=== PATIENT | female | born 1945 | race Caucasian/White ===

== ENCOUNTER 2017-01-12 05:25 | Emergency (ER) | payer MEDICARE ==
[~2017-01-12] VITALS: Ht 152.4 cm; Wt 200.0 kg
[~2017-01-12 05:25] MED LIST: ALBU8.5H4 IH; ALPR1TAB2 PO; ALPRAZOLAM1 MG PO; AMIT25TA9 PO; AMT50T PO; BUPR300T51 PO; CHOL200020 PO; CREST10T PO; ESTR1PAT10 TD; FURO-128 PO; MULT-892 PO; POTA40LI2 PO; THYR60TA2 PO
[2017-01-12 05:54] VITALS: BP 86/58; PULSE 76; RESP 22; O2SAT 96
[2017-01-12 06:28] LABS: BASOPHILS % (AUTO) 0.4 % (0-3); EOSINOPHILS % (AUTO) 1.4 % (0-5); MONOCYTES % (AUTO) 9.4 % (4-12); Mean Corpuscular Hemoglobin 31.6 pg (27.0-35.0); NEUTROPHILS % (AUTO) 72.7 % (40-74); Platelet Count 331 bil/L (150-400)
--- NOTE | 2017-01-12 06:31 | ED.REPORT ---
HPI-Trauma Minor / Fall Date of Service January 12, 2017 ED Provider: Abundio Washburn DO 71 year old female with a history of bilateral hip arthroplasty and CVA e presents to the ER via EMS complaining of right hip pain status post mechanical fall while walking up a flight of stairs yesterday. She laid down in her bed immediately after the fall where she found that she is unable to lay on her right side secondary to pain. When she attempted to get out of bed she fell a second time and was unable to get up for several hours, and screamed for help until her daughter heard her and subsequently called EMS. Patient denies any further injuries secondary to the fall. Nursing Notes Stated Complaint: GROUND LEVEL FALL Chief Complaint: General Complaint Nursing Notes Reviewed: Yes Allergies: Coded Allergies: No Known Drug Allergies (Verified Allergy, Unknown, 03/24/14) Scheduled Albuterol-Expunged Drug, Do Not Renew! (Albuterol-Expunged Drug, Do Not Renew!) 8.5 Gm Hfa.aer.ad 2 PUFFS IH QID four times daily and as needed every four hours Alprazolam-Expunged Drug, Do Not Renew! (Alprazolam-Expunged Drug, Do Not Renew! ) 1 Mg Tablet 1 MG PO HS Must have XANAX, not generic Amitriptyline (Amitriptyline) 50 Mg Tab 50 MG PO HS Amitriptyline-Expunged Drug, Do Not Renew! (Amitriptyline-Expunged Drug, Do Not Renew!) 25 Mg Tablet 50 MG PO HS Bupropion ER (Wellbutrin XL) 300 Mg Tab.er.24h 300 MG PO DAILY Cholecalciferol (D3)-Expunged Drug, Do Not Re (Vitamin M-9-Tufmklfv Drug, Do Not Renew!) 2,000 Unit Capsule 4,000 UNIT PO DAILY Estradiol-Expunged Drug, Do Not Renew! (Dfsvmrp-Weu-Ixxhbaoo Drug, Do Not Renew! ) 1 Patch.bwk Patch.tdsw 1 PATCH.BWK TD BIW 1 mg Multivitamin (Daily Value) 1 Each Tablet 1 EACH PO DAILY Rosuvastatin Calcium (Crestor) 10 Mg Tablet 10 MG PO DAILY Thyroid,Pork ([place] Thyroid) 60 Mg Tablet 60 MG PO DAILY Scheduled PRN Alprazolam (Xanax) 1 Mg Tablet 1 MG PO HS PRN PRN For Anxiety Miscellaneous Medications Furosemide (Lasix) 40 Mg Tablet 40 MG PO Potassium Chloride (Potassium Chloride) 40 Meq/15 Ml Liquid 40 MEQ PO General Time Seen by MD: 06:30 Chief Complaint Fall, Other (Right Hip Pain) Hx Obtained From: Patient Arrived By: Ambulance Onset Occurred: Yesterday Caused by: Accidental, Fall on ground Context: Occurred at: Home injury Location: Hip right Quality: Painful Severity: Current: Moderate Severity: Maximum: Moderate Pertinent Negative: Pt denies other symptoms Similar Sx Previous: No Past Medical History Past Medical History hypothyroid, anxiety Reports: Asthma, Stroke Reports: Depression Past Surgical History rhinoplasty reduction Reports: Appendectomy, Cholecystectomy, Tonsillectomy Reports: Hip replacement (bilateral) Smoking History Never Smoker Social History Alcohol Use: Denies alcohol use Drug Use: Denies drug use Other Social History: Good social support Ambulatory Status Independent Review of Systems Musculoskeletal: Reports: Joint pain (Right Hip), Denies: Back pain, Extremity pain, Lumbar pain, Neck pain, Thoracic pain Neurologic: Reports: Lightheaded Complete sys rev & neg: except as marked. Physical Exam Initial Vital Signs Vital Signs (First) Date Time Temp Pulse Resp B/P Pulse Ox O2 Delivery O2 Flow Rate FiO2 01/12/17 05:54 36.9 76 22 86/58 96 Room Air Initial VS: Reviewed Head / Eyes: Atraumatic, Normocephalic Respiratory: Breath sounds normal, Clear to auscultation, No respiratory distress Cardiovascular: Regular rate & rhythm, Heart sounds normal, Intact distal pulses Skin: Warm, Dry, No cyanosis Neurologic: Alert, Oriented, Nonfocal Psychiatric: Mood/affect normal, Behavior normal, Normal thought content General/Constitutional: Awake, Alert, Well developed Appearance / Presentation: Positive: Pale Neck: Atraumatic, Supple, Full range of motion, No swelling, Non-tender, No midline vertebral tend Lower Extremity / Pelvis / MS: No deformity, Neurologic intact, Vascular intact Right Hip: Positive: Tenderness present... Large hematoma and bruising to the right buttock an gluteal area. Interpretation & Diagnostics Lab Results Interpretation Result Diagram: 01/12/17 0550 01/12/17 0550 Test 01/12/17 05:50 White Blood Count 10.4th/mm3 (3.8-10.1) Red Blood Count 4.05mil/mm3 (3.90-5.20) Hemoglobin 12.8g/dL (12.0-15.6) Hematocrit 40.1% (35.0-46.0) Mean Corpuscular Volume 99.0fL (81-100) Mean Corpuscular Hemoglobin 31.6pg (27.0-35.0) Mean Corpuscular Hemoglobin Concent 31.9% (32.0-37.0) Red Cell Distribution Width 13.7% (12.3-15.4) Platelet Count 331bil/L (150-400) Neutrophils (%) (Auto) 72.7% (40-74) Lymphocytes (%) (Auto) 15.8% (14-46) Monocytes (%) (Auto) 9.4% (4-12) Eosinophils (%) (Auto) 1.4% (0-5) Basophils (%) (Auto) 0.4% (0-3) Prothrombin Time 10.6sec (8.1-12.5) Prothromb Time International Ratio 0.99ratio Sodium Level 142mEq/L (134-144) Potassium Level 4.3mEq/L (3.5-5.2) Chloride Level 101mEq/L (97-108) Carbon Dioxide Level 25mmol/L (18-29) Blood Urea Nitrogen 20mg/dL (8-27) Creatinine 1.62mg/dL (0.57-1.00) Estimat Glomerular Filtration Rate 45mL/min (>59) Glucose Level 216mg/dL (60-99) Calcium Level 9.2mg/dL (8.5-10.1) Magnesium Level 2.1mg/dL (1.6-2.6) Total Bilirubin 0.3mg/dL (0.0-1.2) Aspartate Amino Transf (AST/SGOT) 27U/L (0-50) Alanine Aminotransferase (ALT/SGPT) 19U/L (0-32) Alkaline Phosphatase 61U/L (25-165) Troponin T 0.010ug/L (0.0-0.011) Pro-B-Type Natriuretic Peptide 62.50pg/mL (0-301) Total Protein 5.9g/dL (6.4-8.4) Albumin 3.6g/dL (3.4-5.0) Lipase 23U/L (13-60) ECG Interpretation ECG Interpretation: Sinus rhythm, rate 71 Inferior Q waves Time: 06:47 Interpreted by: ED physician X-Ray Interpretation Xray Interpretation: IMPRESSION: Expected positioning of bilateral hip arthroplasties and no definite acute bony injury is seen. Dictated by: Tony Plummer RRA Interpreted: Lindsey Nicholas MD on 01/12/2017 at 8:42 Transcribed by: DARLEEN on 01/12/2017 at 8:44 X-Ray Ordered: Pelvis, Hip right Interpretation / Wet Read by: Interpret - Radiologist Re-Eval/Medical Decision Med Decision/Clinical Course No obvious fracture however she does have a significant gluteal hematoma. After pain management x-rays and basic screening labs were performed, she is ambulatory with a walker which sounds like that is her baseline. Ultimately she is stable to be discharged. Return and follow-up precautions given. Source of Hx: Old records Re-Evaluation/Progress #1: Time of Eval: 08:05 Re-Evaluation/Progress Note: Discussed lab and imaging findings and plan to discharge pending road test. Patient is amenable to the plan. Return precautions given. All other questions addressed. Re-Evaluation/Progress #2: Time of Eval: 08:49 Re-Evaluation/Progress Note: Patient passed road test. Fit for discharge. Counseled Regarding: Diagnosis, Lab results, Need for follow-up, When/why to return to ED Discharge & Departure Impression: Primary Impression: Contusion, hip Disposition: Home Discharge Condition All VS Reviewed: Yes Condition: Stable Patient Instructions: Contusion in Adults (ED) Additional Instructions: Use a walker as needed for ambulation, progress as tolerated. Return to the ER if you develop any new or worsening pain, or any other concerning symptoms. Referrals: Lupe Ahn MD (PCP) Scribe Attestation Portions of this note were transcribed by Roger Christensen. I, Dr. Washburn, personally performed the history, physical exam and medical decision-making; I reviewed and confirmed the accuracy of the information in the transcribed note. Signed by: Ana Tabor, 01/12/2017 and 08:49 copies to: Lupe Ahn MD, Timothy S DO January 12, 2017 06:31 ROGER CHRISTENSEN January 12, 2017 06:40
[2017-01-12] MEDS ORDERED: 0.9% Sodium Chloride 500 ML IV ONE (06:40)
[2017-01-12 06:57] LABS: INR 0.99 ratio
[2017-01-12 06:59] LABS: TROPONIN T 0.01 ug/L (0.0-0.011)
[2017-01-12] MEDS ORDERED: HYDROmorphone 0.5 mg/0.5 mL iSecure Syringe IVPUSH PRN (07:10)
[2017-01-12 07:15] LABS: Magnesium 2.1 mg/dL (1.6-2.6)
[2017-01-12 07:21] VITALS: BP 101/52; PULSE 69; RESP 21; O2SAT 96
--- NOTE | 2017-01-12 08:44 | DRSVH ---
PROCEDURE: X-RAY PELVIS W/LAT HIP (RT) ([id number]) INDICATIONS: fall, pain TECHNIQUE: AP pelvis and lateral view of the right hip acquired. COMPARISON: None. FINDINGS: Bones: Patient is status post bilateral hip arthroplasty, with hardware components in expected posit ions. The hip joint appears congruent. The visualized bony structures appear intact. Degenerative change involving the visualized lower lumbar spine. Soft tissues: Overlying postoperative changes are noted. No suspicious soft tissue densities. Righ t lower quadrant surgical clips. IMPRESSION: Expected positioning of bilateral hip arthroplasties and no definite acute bony injury is seen. Dictated by: Tony Plummer [facility] Interpreted: Lindsey Nicholas MD on 01/12/2017 at 8:42 Transcribed by: DARLEEN on 01/12/2017 at 8:44 Approved by: Lindsey Nicholas MD, PhD on 01/12/2017 at 9:20
[2017-01-12 09:21] VITALS: BP 117/68; PULSE 72; RESP 16; O2SAT 90
== END 2017-01-12 08:34 | disposition home or self-care (01) ==
LOC: SED 05:25
DX: S70.01XA Contusion of right hip, initial encounter (principal); W10.8XXA Fall (on) (from) other stairs and steps, initial encounter; Y92.009 Unspecified place in unspecified non-institutional (private) residence as the place of occurrence of the external cause; Y93.01 Activity, walking, marching and hiking; Y99.8 Other external cause status; F32.9 Major depressive disorder, single episode, unspecified; J45.909 Unspecified asthma, uncomplicated; E03.9 Hypothyroidism, unspecified; F41.9 Anxiety disorder, unspecified; Z96.643 Presence of artificial hip joint, bilateral
CPT/HCPCS: 36415; 73501; 80053; 83690; 83735; 83880; 84484; 85025; 85610; 93005; 96361; 96374; 99285; J1170; J7040

== ENCOUNTER 2017-01-17 11:02 | Emergency (ER) | payer MEDICARE ==
[~2017-01-17] VITALS: Ht 152.4 cm; Wt 95.5 kg
[2017-01-17 11:05] VITALS: BP 146/95; PULSE 85; RESP 16; O2SAT 100
--- NOTE | 2017-01-17 11:13 | ED.REPORT ---
HPI-Hip/Pelvis Prob/Inj Date of Service January 17, 2017 ED Provider: Luis Sanders MD Pt is a 71 year old female with a hx of asthma presenting to the ED complaining of increased swelling and bruising to her right buttock following a fall on . She now reports swelling, tingling, and increased pain. She denies being on blood thinners, but does report taking Aspirin the day after the injury. Pt is usually ambulatory on her own but right now is ambulatory with a walker. Nursing Notes Stated Complaint: CONTUSION Chief Complaint: Extremity Trauma Nursing Notes Reviewed: Yes Allergies: Coded Allergies: No Known Drug Allergies (Verified Allergy, Unknown, 01/17/17) Scheduled Albuterol-Expunged Drug, Do Not Renew! (Albuterol-Expunged Drug, Do Not Renew!) 8.5 Gm Hfa.aer.ad 2 PUFFS IH QID four times daily and as needed every four hours Alprazolam-Expunged Drug, Do Not Renew! (Alprazolam-Expunged Drug, Do Not Renew! ) 1 Mg Tablet 1 MG PO HS Must have XANAX, not generic Amitriptyline (Amitriptyline) 50 Mg Tab 50 MG PO HS Amitriptyline-Expunged Drug, Do Not Renew! (Amitriptyline-Expunged Drug, Do Not Renew!) 25 Mg Tablet 50 MG PO HS Bupropion ER (Wellbutrin XL) 300 Mg Tab.er.24h 300 MG PO DAILY Cholecalciferol (D3)-Expunged Drug, Do Not Re (Vitamin C-9-Vbztchir Drug, Do Not Renew!) 2,000 Unit Capsule 4,000 UNIT PO DAILY Estradiol-Expunged Drug, Do Not Renew! (Mazlmwn-Wjw-Knemgucv Drug, Do Not Renew! ) 1 Patch.bwk Patch.tdsw 1 PATCH.BWK TD BIW 1 mg Multivitamin (Daily Value) 1 Each Tablet 1 EACH PO DAILY Rosuvastatin Calcium (Crestor) 10 Mg Tablet 10 MG PO DAILY Thyroid,Pork ([place] Thyroid) 60 Mg Tablet 60 MG PO DAILY Scheduled PRN Alprazolam (Xanax) 1 Mg Tablet 1 MG PO HS PRN PRN For Anxiety Hydromorphone (Dilaudid) 2 Mg Tablet 2 MG PO Q4H PRN PRN Pain Miscellaneous Medications Furosemide (Lasix) 40 Mg Tablet 40 MG PO Potassium Chloride (Potassium Chloride) 40 Meq/15 Ml Liquid 40 MEQ PO General Time Seen by Provider: 11:28 Chief Complaint Hip injury right Hx Obtained From: Patient Arrived By: Walk-in Onset Occurred: 6 days ago Symptom Duration: Since onset Progression Since Onset: Gradually worsening Caused by: Fall on ground Quality: Painful Severity: Current: Moderate Severity: Maximum: Severe Recent Healthcare: No recent hospitalization, Recent doctor visit Similar Sx Previous: No Past Medical History Past Medical History hypothyroid, anxiety Reports: Asthma, Stroke Reports: Depression Past Surgical History rhinoplasty reduction Reports: Appendectomy, Cholecystectomy, Tonsillectomy Reports: Hip replacement Smoking History Never Smoker Social History Alcohol Use: Denies alcohol use Drug Use: Denies drug use Other Social History: Good social support Ambulatory Status Walker Review of Systems Musculoskeletal: Reports: Joint pain (Right hip/buttock) Skin: Reports Bruising, Reports Swelling Neurologic: Reports: Numbness Complete sys rev & neg: except as marked. Physical Exam Initial Vital Signs Vital Signs (First) Date Time Temp Pulse Resp B/P Pulse Ox O2 Delivery O2 Flow Rate FiO2 01/17/17 11:05 36.0 85 16 146/95 100 Room Air Initial VS: Reviewed General/Constitutional: Well-developed, Well-nourished Head / Eyes: Normocephalic, PERRL ENT: Conjunctiva normal Neck: Supple Respiratory: No respiratory distress Skin: Warm, Dry, No cyanosis Neurologic: Alert, Oriented, Nonfocal Psychiatric: Mood/affect normal, Behavior normal, Normal thought content Lower Extremity / Pelvis / MS: Neurologic intact, Vascular intact, No compartment syndrome Big bruise over right sacrum extending from left of midline to iliac crest, down onto buttock and a bit of bruising tracking down into thigh. Soft. Pulses, sensation and motor intact in the right foot. Back: No midline vertebral tend, No CVA tenderness Pt has a little tenderness of lower lumbar spine. Interpretation & Diagnostics Interpretation & Diagnostics: XRAY PELVIS: IMPRESSION: No fracture. No acute osseous lesion. If there are persistent symptoms or clinical suspicion for pathology, then repeat radiographs or advanced imaging (CT, MRI or bone scan) should be considered for further evaluation. Dictated by: Lindsey Nicholas MD, PhD on 01/17/2017 at 12:19 XRAY LUMBAR SPINE: IMPRESSION: No fracture. No acute osseous lesion. If there are persistent symptoms or continued clinical suspicion for pathology, then MRI should be considered for further evaluation. Dictated by: Lindsey Nicholas MD, PhD on 01/17/2017 at 12:18 Lab Results Interpretation Result Diagram: 01/17/17 1145 Test 01/17/17 11:45 White Blood Count 5.5th/mm3 (3.8-10.1) Red Blood Count 3.25mil/mm3 (3.90-5.20) Hemoglobin 10.3g/dL (12.0-15.6) Hematocrit 32.5% (35.0-46.0) Mean Corpuscular Volume 100.0fL (81-100) Mean Corpuscular Hemoglobin 31.7pg (27.0-35.0) Mean Corpuscular Hemoglobin Concent 31.7% (32.0-37.0) Red Cell Distribution Width 13.7% (12.3-15.4) Platelet Count 328bil/L (150-400) Neutrophils (%) (Auto) 73.5% (40-74) Lymphocytes (%) (Auto) 12.5% (14-46) Monocytes (%) (Auto) 9.5% (4-12) Eosinophils (%) (Auto) 3.1% (0-5) Basophils (%) (Auto) 0.5% (0-3) Hold Blue Top Tube Received (Received) Hold Red Top Tube Received (Received) Hold [place] Top Tube Received (Received) Hold [place] Top Tube Received (Received) Re-Eval/Medical Decision Re-Evaluation/Progress #1: Time of Eval: 12:25 Patient Status: Condition improved Re-Evaluation/Progress Note: Discussed x ray results. Re-Evaluation/Progress #2: Time of Eval: 13:03 Patient Status: Condition improved Re-Evaluation/Progress Note: Discussed lab results and plan for discharge. Pt understands and agrees. Counseled Regarding: Diagnosis, Lab results, Need for follow-up, When/why to return to ED Discharge & Departure Impression: Primary Impression: Contusion of right hip and thigh Disposition: Home Discharge Condition All VS Reviewed: Yes Condition: Improved Additional Instructions: Your emergency room visit today included interview, examination, lab work, and x rays. Your x rays looked good, and did not show any sign of fracture. Blood work did demonstrate a drop in hemoglobin between January 12 and today, but we do not believe that there is any acute bleeding going on at present. Expect that this will track out further with time. May use tylenol as needed for pain. If having severe pain may use oral dilaudid 2mg 1/2 to 1 tablet- this will cause constipation so use stool softeners and laxitives to keep bowels moving. Follow up with primary care in about 5-7 days. Return to ED for feeling faint/ fainting. Referrals: Lupe Ahn MD (PCP) Alinaibe Attestation Portions of this note were transcribed by Flora Kenney. I, Dr. Sanders personally performed the history, physical exam and medical decision-making; I reviewed and confirmed the accuracy of the information in the transcribed note. Signed by : Ana Banegas, 01/17 at 1309. copies to: Lupe Ahn MD, Donald L MD January 17, 2017 11:13 FLORA KENNEY January 17, 2017 11:31 FLORA KENNEY January 17, 2017 11:31
[2017-01-17] MEDS ORDERED: HYDROmorphone 1 mg/mL Inj IM ONE (11:35)
--- NOTE | 2017-01-17 12:20 | DRSVH ---
PROCEDURE: X-RAY LUMBAR SPINE, 2 OR 3 VIEW INDICATIONS: back pain post fall TECHNIQUE: 3 views of the lumbar spine were acquired. COMPARISON: None. FINDINGS: Bones: 5 vyr-cod-bdgngga vertebrae are present. There is normal bony alignment. No vertebral body compression fractures. No suspicious bony lesions. Spine degenerative disease and facet arthropathy noted. Soft tissues: Overlying bowel gas pattern is normal. No suspicious soft tissue calcifications. Surg ical clips in the right lower quadrant and bilateral hip arthroplasties. IMPRESSION: No fracture. No acute osseous lesion. If there are persistent symptoms or continued clin ical suspicion for pathology, then MRI should be considered for further evaluation. Dictated by: Lindsey Nicholas MD, PhD on 01/17/2017 at 12:18 Approved by: Lindsey Nicholas MD, PhD on 01/17/2017 at 12:19
--- NOTE | 2017-01-17 12:21 | DRSVH ---
PROCEDURE: X-RAY PELVIS, ONE OR TWO VIEWS ([id number]) INDICATIONS: back pain post fall TECHNIQUE: 1 view(s) of the pelvis acquired. COMPARISON: None. FINDINGS: Bones: No fractures or dislocations. No suspicious bony lesions. Bilateral hip arthroplasties. Spin e degenerative disease and facet arthropathy noted. Soft tissues: Visualized bowel gas pattern is normal. No suspicious soft tissue calcifications. IMPRESSION: No fracture. No acute osseous lesion. If there are persistent symptoms or clinical suspi cion for pathology, then repeat radiographs or advanced imaging (CT, MRI or bone scan) should be cons idered for further evaluation. Dictated by: Lindsey Nicholas MD, PhD on 01/17/2017 at 12:19 Approved by: Lindsey Nicholas MD, PhD on 01/17/2017 at 12:20
[2017-01-17 12:25] LABS: Mean Corpuscular Hemoglobin 31.7 pg (27.0-35.0)
[2017-01-17 12:26] LABS: BASOPHILS % (AUTO) 0.5 % (0-3); EOSINOPHILS % (AUTO) 3.1 % (0-5); MONOCYTES % (AUTO) 9.5 % (4-12); NEUTROPHILS % (AUTO) 73.5 % (40-74); Platelet Count 328 bil/L (150-400)
[2017-01-17 12:58] VITALS: BP 133/68; PULSE 66; RESP 12; O2SAT 94
[2017-01-17 13:00] VITALS: BP 126/67; PULSE 66; RESP 20; O2SAT 95
[2017-01-17] MEDS ORDERED: HYDR2TAB27 PO (13:08)
[2017-01-17 13:20] VITALS: BP 132/77; PULSE 66; O2SAT 93
== END 2017-01-17 13:21 | disposition home or self-care (01) ==
LOC: SED 11:02
DX: S70.01XA Contusion of right hip, initial encounter (principal); S70.11XA Contusion of right thigh, initial encounter; W19.XXXA Unspecified fall, initial encounter; Y92.9 Unspecified place or not applicable; Y93.9 Activity, unspecified; Y99.9 Unspecified external cause status; J45.909 Unspecified asthma, uncomplicated; E03.9 Hypothyroidism, unspecified; F41.9 Anxiety disorder, unspecified; F32.9 Major depressive disorder, single episode, unspecified; Z86.73 Personal history of transient ischemic attack (TIA), and cerebral infarction without residual deficits; Z96.649 Presence of unspecified artificial hip joint
CPT/HCPCS: 36415; 72100; 72170; 85025; 96372; 99284; J1170

== ENCOUNTER 2017-04-05 13:14 | Emergency (ER) | payer MEDICARE ==
[~2017-04-05] VITALS: Ht 152.4 cm; Wt 97.7 kg
[~2017-04-05 13:14] MED LIST changes: +HYDR2TAB27 PO
[2017-04-05 13:17] VITALS: BP 165/101; PULSE 80; RESP 18; O2SAT 98
[2017-04-05 16:03] VITALS: BP 159/83; PULSE 70; RESP 15; O2SAT 95
--- NOTE | 2017-04-05 17:10 | ED.REPORT ---
HPI-Extremity Problem Lower Date of Service Apr 05, 2017 ED Provider: Dr. Vazquez Pt is a 71 y/o female w/ a hx of HTN, HLD, CKD 3, presenting to the ED with her daughter c/o painful hematoma over right buttock which occurred after a ground level fall which happened mid-late December 2016. The patient had a ground level fall in mid-late December 2016 causing a right buttock contusion and hematoma. 3 days later it enlarged and she returned to the ED with concern for compartment syndrome. She was told there was no sign of compartment syndrome and was discharged. It remained stable but for the past few days it has become much more painful and grown in size. The pain is causing her difficulty sleeping and sitting. She denies fever, chills, vomiting, any other symptoms. She is not anticoagulated. Nursing Notes Stated Complaint: HIP PAIN Chief Complaint: General Complaint Nursing Notes Reviewed: Yes Allergies: Coded Allergies: No Known Drug Allergies (Verified Allergy, Unknown, 01/17/17) Scheduled Albuterol-Expunged Drug, Do Not Renew! (Albuterol-Expunged Drug, Do Not Renew!) 8.5 Gm Hfa.aer.ad 2 PUFFS IH QID four times daily and as needed every four hours Alprazolam-Expunged Drug, Do Not Renew! (Alprazolam-Expunged Drug, Do Not Renew! ) 1 Mg Tablet 1 MG PO HS Must have XANAX, not generic Amitriptyline (Amitriptyline) 50 Mg Tab 50 MG PO HS Amitriptyline-Expunged Drug, Do Not Renew! (Amitriptyline-Expunged Drug, Do Not Renew!) 25 Mg Tablet 50 MG PO HS Bupropion ER (Wellbutrin XL) 300 Mg Tab.er.24h 300 MG PO DAILY Cholecalciferol (D3)-Expunged Drug, Do Not Re (Vitamin V-6-Nnsexmfa Drug, Do Not Renew!) 2,000 Unit Capsule 4,000 UNIT PO DAILY Estradiol-Expunged Drug, Do Not Renew! (Kgbvpcz-Gbb-Omzogzij Drug, Do Not Renew! ) 1 Patch.bwk Patch.tdsw 1 PATCH.BWK TD BIW 1 mg Multivitamin (Daily Value) 1 Each Tablet 1 EACH PO DAILY Rosuvastatin Calcium (Crestor) 10 Mg Tablet 10 MG PO DAILY Thyroid,Pork ([place] Thyroid) 60 Mg Tablet 60 MG PO DAILY Scheduled PRN Alprazolam (Xanax) 1 Mg Tablet 1 MG PO HS PRN PRN For Anxiety Hydromorphone (Dilaudid) 2 Mg Tablet 2 MG PO Q4H PRN PRN Pain Miscellaneous Medications Furosemide (Lasix) 40 Mg Tablet 40 MG PO Potassium Chloride (Potassium Chloride) 40 Meq/15 Ml Liquid 40 MEQ PO General Time Seen by MD: 17:09 Chief Complaint Other (R buttock hematoma) Hx Obtained From: Patient Arrived By: Walk-in Onset Occurred: More than a week ago... (2 months) Symptom Duration: Since onset Location: : Hip right (buttock) Quality: Painful Severity: Current: Moderate Severity: Maximum: Moderate Recent Healthcare: Previous diagnosis, Prior workup Past Medical History Past Medical History Hypothyroid HTN HLD CKD 3 Anxiety Depression Asthma Arthritis Hx GI bleed Hx UTI and pyelonephritis Hx diverticulitis Hx pneumonia Past Surgical History Rhinoplasty reduction Reports: Appendectomy, Cholecystectomy, Tonsillectomy Reports: Hip replacement Smoking History Never Smoker Social History Is an [employer] Alcohol Use: Denies alcohol use Drug Use: Denies drug use Other Social History: Good social support Ambulatory Status Walker Review of Systems Review of Systems Note: +hematoma Constitutional: Denies: Chills, Fever Musculoskeletal: Reports: Extremity pain (buttock) Complete sys rev & neg: except as marked. GI: Denies: Nausea, Vomiting Physical Exam Initial Vital Signs Vital Signs (First) Date Time Temp Pulse Resp B/P Pulse Ox O2 Delivery O2 Flow Rate FiO2 04/05/17 13:17 36.5 80 18 165/101 98 Room Air Initial VS: Reviewed, Vital signs abnormal Head / Eyes: Atraumatic, Normocephalic ENT: Mucous membranes moist, Conjunctiva normal, No scleral icterus Neck: Supple, Full range of motion Respiratory: No respiratory distress Cardiovascular: Intact distal pulses Abdomen / GI: Soft, Non-tender Upper Extremities: Vascular intact, Neuro intact, No swelling Neurologic: Alert, Oriented, Nonfocal Psychiatric: Mood/affect normal, Behavior normal, Normal thought content Lower Extremity / Pelvis / MS: No deformity, Neurologic intact, Vascular intact Humongous liquified hematoma over right buttock measuring [id number] cm Painful to touch Ankle / Foot: Neurologic intact, Vascular intact General/Constitutional: Awake, Alert, No acute distress, Well appearing, Cooperative, Not toxic appearing Procedures Incision & Drainage Abscess I & D Abscess: This was not an I&D, it was a liquified hematoma aspiration. This is the closest procedure note available. 14 gauge angiocath was used for aspiration. 420 mL dark brown liquid removed Time: 17:30 Procedure Performed by: ED physician Consent / Setup / Site Prep: Consent from patient, Hand hygiene observed, Stand sterile technique, Standard surgical scrub, Sterile drapes applied Location of Abscess: Right buttock Skin Preparation Agent: Betadine Local Anesthesia: Lidocaine 1% Post-Procedure / Complications: Dressing applied, No complications, Condition improved, Tolerated procedure well, Patient stable Re-Eval/Medical Decision Source of Hx: Old records, Family Re-Evaluation/Progress : Time of Eval: 17:53 Re-Evaluation/Progress Note: Pt rechecked. Informed pt of plan for discharge. Pt understands and agrees with plan for discharge. F/U instructions and RTER warnings given. All questions addressed. Consultation : Referral / Consult Name: Dk Noe MD Consulted With: Surgeon Call Returned at: 17:24 Steward/Stewardess Night: Agrees with eval, Agrees with plan Note: Recommends I attempt aspiration. Counseled Regarding: Diagnosis, Lab results, Need for follow-up, When/why to return to ED Discharge & Departure Impression: Primary Impression: Hematoma of right hip Encounter type: subsequent encounter Qualified Code: S70.01XD - Contusion of right hip, subsequent encounter Disposition: Home Discharge Condition All VS Reviewed: Yes Condition: Stable Patient Instructions: Hematoma (ED) Additional Instructions: Large hematoma of the right buttock was drained successfully in the emergency department. 420 mL of dark brown liquid was removed without complication. I recommend a pressure dressing for the next few days. If it re-accumulates you could consider another drainage procedure or surgical consultation for definitive removal and drain placement. Referrals: Lupe Ahn MD (PCP) Scribe Attestation Portions of this note were transcribed by Zain Oshea. IDr. Vazquez personally performed the history, physical exam and medical decision-making; I reviewed and confirmed the accuracy of the information in the transcribed note. copies to: Lupe Ahn MD, Kirk H MD Apr 05, 2017 17:10 ZAIN OSHEA Apr 05, 2017 17:23
== END 2017-04-05 18:02 | disposition home or self-care (01) ==
LOC: SED 13:14
DX: S30.0XXD Contusion of lower back and pelvis, subsequent encounter (principal); W01.0XXD Fall on same level from slipping, tripping and stumbling without subsequent striking against object, subsequent encounter; Y93.01 Activity, walking, marching and hiking; Y99.8 Other external cause status; Y92.9 Unspecified place or not applicable; J45.909 Unspecified asthma, uncomplicated; I12.9 Hypertensive chronic kidney disease with stage 1 through stage 4 chronic kidney disease, or unspecified chronic kidney disease; N18.3 Chronic kidney disease, stage 3 (moderate); E78.00 Pure hypercholesterolemia, unspecified; E03.9 Hypothyroidism, unspecified; E78.5 Hyperlipidemia, unspecified; Z90.89 Acquired absence of other organs; Z96.649 Presence of unspecified artificial hip joint; Z90.49 Acquired absence of other specified parts of digestive tract; Z79.818 Long term (current) use of other agents affecting estrogen receptors and estrogen levels; Z79.51 Long term (current) use of inhaled steroids

== ENCOUNTER 2017-04-16 10:05 | Emergency (ER) | payer MEDICARE ==
[2017-04-16 10:14] VITALS: BP 159/72; PULSE 74; RESP 16; O2SAT 99
--- NOTE | 2017-04-16 10:48 | ED.REPORT ---
HPI-General Illness Date of Service Apr 16, 2017 ED Provider: Justin Brooks MD Pt is a 71 year old female with a hx of TIA 1 year ago, HTN and CKD presenting to the ED post fall 3 days ago complaining of trouble breathing through her nose. Pt reports that when she fell, she was walking to the bathroom and was wearing different shoes than normal, and tripped and fell onto her face. She was not seen after the fall. Denies facial droop, vision changes, numbness or weakness, speech problems, headache. She has fallen 3 times recently. Pt reports that she feels safe living on her own at home and that her son and daughter in law live downstairs. Not on blood thinners. She is seeing PT for off -balance issues she has after the stroke. 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 She is not on any blood thinners. She states that she only uses her walker when she is downstairs because she cannot carry up and down the stairs. Every time she has fallen she is been upstairs where she does not have her walker. Nursing Notes Stated Complaint: SHORTNESS OF BREATH Chief Complaint: Multiple Trauma/Fall Nursing Notes Reviewed: Yes Allergies: Coded Allergies: No Known Drug Allergies (Verified Allergy, Unknown, 04/16/17) Scheduled Albuterol-Expunged Drug, Do Not Renew! (Albuterol-Expunged Drug, Do Not Renew!) 8.5 Gm Hfa.aer.ad 2 PUFFS IH QID four times daily and as needed every four hours Alprazolam-Expunged Drug, Do Not Renew! (Alprazolam-Expunged Drug, Do Not Renew! ) 1 Mg Tablet 1 MG PO HS Must have XANAX, not generic Amitriptyline (Amitriptyline) 50 Mg Tab 50 MG PO HS Amitriptyline-Expunged Drug, Do Not Renew! (Amitriptyline-Expunged Drug, Do Not Renew!) 25 Mg Tablet 50 MG PO HS Bupropion ER (Wellbutrin XL) 300 Mg Tab.er.24h 300 MG PO DAILY Cholecalciferol (D3)-Expunged Drug, Do Not Re (Vitamin W-8-Ecnkahkq Drug, Do Not Renew!) 2,000 Unit Capsule 4,000 UNIT PO DAILY Estradiol-Expunged Drug, Do Not Renew! (Wbdixpi-Rov-Aeusmxuy Drug, Do Not Renew! ) 1 Patch.bwk Patch.tdsw 1 PATCH.BWK TD BIW 1 mg Multivitamin (Daily Value) 1 Each Tablet 1 EACH PO DAILY Rosuvastatin Calcium (Crestor) 10 Mg Tablet 10 MG PO DAILY Thyroid,Pork ([place] Thyroid) 60 Mg Tablet 60 MG PO DAILY Scheduled PRN Alprazolam (Xanax) 1 Mg Tablet 1 MG PO HS PRN PRN For Anxiety Hydromorphone (Dilaudid) 2 Mg Tablet 2 MG PO Q4H PRN PRN Pain Miscellaneous Medications Furosemide (Lasix) 40 Mg Tablet 40 MG PO Potassium Chloride (Potassium Chloride) 40 Meq/15 Ml Liquid 40 MEQ PO General Time Seen by MD: 10:14 Chief Complaint Other (Trouble breathing through her nose) Hx Obtained From: Patient, Daughter Arrived By: Walk-in Sudden in Onset?: No Onset Occurred: 3 days ago Symptom Duration: Since onset Caused by: Fall on ground Severity: Current: No pain currently Severity: Maximum: No pain Recent Healthcare: No recent doctor visit, No recent hospitalization Similar Sx Previous: No Past Medical History Past Medical History TIA 2016 Hypothyroid HTN HLD CKD 3 Anxiety Depression Asthma Arthritis Hx GI bleed Hx UTI and pyelonephritis Hx diverticulitis Hx pneumonia Past Surgical History Rhinoplasty reduction Reports: Appendectomy, Cholecystectomy, Tonsillectomy Reports: Hip replacement Smoking History Never Smoker 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 Physical Exam Vital Signs Vital Signs Date Time Temp Pulse Resp B/P Pulse Ox O2 Delivery O2 Flow Rate FiO2 04/16/17 11:28 36.3 73 20 152/77 93 Room Air 04/16/17 10:14 36.3 74 16 159/72 99 Room Air Initial VS: Reviewed Abdomen / GI: Soft, Non-tender, No guarding, No rebound, No distention Psychiatric: Mood/affect normal, Behavior normal, Normal thought content General/Constitutional: Awake, Alert, No acute distress, Well appearing Head / Eyes: Normocephalic, PERRL, EOMI ENT: Atraumatic, Airway patent, Mucous membranes moist, Pharynx NL Soft pallate normal. Little bit of dried blood. Trachea normal. Neck: Atraumatic, Supple, No meningismus, Full range of motion No midline cervical tenderness. No signs of trauma. Respiratory / Chest: Atraumatic, Breath sounds NL, Breath sounds = bilat, No respiratory distress Cardiovascular: Heart rate NL, Regular rhythm, Heart sounds NL, No gallop, No murmurs, No rubs Skin: Warm, Dry, Intact Small laceration to the bridge of nose which is healing. Ecchymosis to the upper lip. Periorbital bilateral ecchymosis. Swelling of turbinates. Neurologic: Oriented X3, Speech NL, No motor deficits, No sensory deficits, CN II - XII intact, Reflexes equal bilat, Cerebellar NL, Memory NL Normal mentation and phonation. Strength 5/5 bilateral upper and lower extremities. Good equipment operator wage hand strength bilaterally. Slow gate but able to ambulate in straight line. Re-Eval/Medical Decision Med Decision/Clinical Course Pt is a 71 year old female with a hx of TIA 1 year ago, HTN and CKD presenting to the ED post fall 3 days ago complaining of trouble breathing through her nose. Pt reports that when she fell, she was walking to the bathroom and was wearing different shoes than normal, and tripped and fell onto her face. She was not seen after the fall. Denies facial droop, vision changes, numbness or weakness, speech problems, headache. She has fallen 3 times recently. Pt reports that she feels safe living on her own at home and that her son and daughter in law live downstairs. Not on blood thinners. She is seeing PT for off -balance issues she has after the stroke. 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 She is not on any blood thinners. She states that she only uses her walker when she is downstairs because she cannot carry up and down the stairs. Every time she has fallen she is been upstairs where she does not have her walker. Here in the emergency department the patient is afebrile with stable vital signs and examination as above. Of note she has a healing small laceration about the bridge of her nose as well as bilateral periorbital ecchymosis. Upon examination there is no evidence of midface fracture and she is without any crepitance. There is no evidence of intraoral trauma and she has good alignment of her jaw. There is no evidence whatsoever of nasal septal hematoma. She does have some generalized edema of her nose which I suspect the cause of her difficulty breathing through her nose. There is no evidence of trauma to the scalp and she is neurologically intact. The injury occurred several days ago and she has not had any headaches, vomiting or progressive symptoms. She is not on blood thinners. I had an in-depth discussion with her regarding imaging studies and she does not want to proceed with imaging of her face, scalp or neck. He has no midline cervical tenderness, bony deformities or step-offs. She was given Afrin and reported that was easier to breathe through her nose. I had a long discussion with the patient and her daughter regarding her home situation and it is felt that she is safe at home that she needs to use her walker at all times. She was provided with a second walker that she will keep upstairs as not having a walker upstairs in the cause of most of her falls. Prior to discharge follow-up and return precautions were reviewed in detail with the patient who verbalized understanding and agreement with the plan. The patient was discharged in stable condition. Time of Eval: 11:00 Patient Status: Condition improved Re-Evaluation/Progress Note: Discussed plan for discharge. Pt understands and agrees with plan. Counseled Regarding: Diagnosis, Lab results, Need for follow-up, When/why to return to ED Discharge & Departure Primary Impression: Facial trauma Encounter type: initial encounter Qualified Code: S09.93XA - Unspecified injury of face, initial encounter Additional Impressions: Periorbital ecchymosis Encounter type: initial encounter Laterality: unspecified laterality Qualified Code: S00.10XA - Contusion of unspecified eyelid and periocular area , initial encounter Unsteady gait Fall from ground level Disposition: Home Discharge Condition All VS Reviewed: Yes Condition: Improved Additional Instructions: You should always use a walker to prevent more falls. Call the ENT doctor to make a follow up appointment to further look at your breathing issues. Return for vomiting, headache, numbness, problems with speech, vision changes, or any other new or worsening symptoms. Follow up with your primary care doctor. Referrals: Lupe Ahn MD (PCP) Jsoe Armando Noe MD Attestation Portions of this note were transcribed by Flora Kenney. I, Dr. Brooks personally performed the history, physical exam and medical decision-making; I reviewed and confirmed the accuracy of the information in the transcribed note. Signed by: Ana Banegas, 04/16/2017. copies to: Jose Armando Noe MD; Lupe Ahn MD, Beck O MD Apr 16, 2017 10:48 FLORA KENNEY Apr 16, 2017 10:57
[2017-04-16 11:28] VITALS: BP 152/77; PULSE 73; RESP 20; O2SAT 93
== END 2017-04-16 11:31 | disposition home or self-care (01) ==
LOC: SED 10:05
DX: S01.21XA Laceration without foreign body of nose, initial encounter (principal); S00.11XA Contusion of right eyelid and periocular area, initial encounter; S00.12XA Contusion of left eyelid and periocular area, initial encounter; S00.531A Contusion of lip, initial encounter; W01.10XA Fall on same level from slipping, tripping and stumbling with subsequent striking against unspecified object, initial encounter; Y93.01 Activity, walking, marching and hiking; Y92.002 Bathroom of unspecified non-institutional (private) residence as the place of occurrence of the external cause; Y99.8 Other external cause status; R04.0 Epistaxis; R26.81 Unsteadiness on feet; I12.9 Hypertensive chronic kidney disease with stage 1 through stage 4 chronic kidney disease, or unspecified chronic kidney disease; N18.3 Chronic kidney disease, stage 3 (moderate); J45.909 Unspecified asthma, uncomplicated; E03.9 Hypothyroidism, unspecified; F41.8 Other specified anxiety disorders; Z87.440 Personal history of urinary (tract) infections; Z86.73 Personal history of transient ischemic attack (TIA), and cerebral infarction without residual deficits; Z87.01 Personal history of pneumonia (recurrent); Z98.890 Other specified postprocedural states

== ENCOUNTER → 2017-05-21 | Day surgery (SDC) | payer MEDICARE ==
[2017-05-21] VITALS (12 sets, daily range): BP systolic 121–178; BP diastolic 68–87; PULSE 68–89; RESP 15–23; O2SAT 91–98
[~2017-05-21] VITALS: Ht 152.4 cm; Wt 95.5 kg
[~2017-05-21] MED LIST changes: +ACET-171 PO; +ALBU18HF INH; -ALBU8.5H4 IH; -ALPRAZOLAM1 MG PO; -AMIT25TA9 PO; +BECL8.7A6 INHALATION; +BUPR-97 PO; -BUPR300T51 PO; +Bupivacaine-MPF 0.5% 30 mL Inj INFILTRATE ONE; +CHOL100045 PO; -CHOL200020 PO; +CITA40TA13 PO; -CREST10T PO; +CeFAZolin Inj 2 GM in IV Premix 1 EACH IV ONE; +Dexamethasone 4 mg/mL Inj IVPUSH PRN; +Dexamethasone 4 mg/mL Inj ONE; +EPHEDrine Sulfate 50 mg/mL Inj IVPUSH PRN; -ESTR1PAT10 TD; +FRNCD30C PO; -FURO-128 PO; -HYDR2TAB27 PO; +HYDROmorphone 1 mg/mL Inj IVPUSH PRN; +IBUP-1827 PO; +Labetalol 5 mg/mL 20 mL Inj IV PRN; +Lactated Ringer's 1,000 ML IV SCH; +Lactated Ringer's 500 ML IV PRN; +MULT-1018 PO; -MULT-892 PO; +MetoCLOpramide 5 mg/mL 2 mL Inj IVPUSH PRN; +MetoCLOpramide 5 mg/mL 2 mL Inj ONE; +OXYC-530 PO; +Ondansetron 2 mg/mL 2 mL Inj IVPUSH PRN; +Ondansetron 2 mg/mL 2 mL Inj ONE; +POTA20TA16 PO; -POTA40LI2 PO; +Phenylephrine 10,000 mCg/mL Inj IVPUSH PRN; +Propofol 10,000 mCg/mL 20 mL Inj ONE; +ROB500 PO; +SENN1TAB90 PO; +VIT1TABL83 PO; +fentaNYL-PF 50 mCg/mL 2 mL Inj IVPUSH PRN
[2017-05-21] MEDS: Lactated Ringer's 1,000 ML IV SCH ×2 (09:54→12:17)
--- NOTE | 2017-05-21 11:59 | PCM.HPANE ---
Patient Data Surgeon Admitting Provider: Attending Provider:Joelle Pérez MD Primary Care Physician:Christelle Ng MD Other Provider:Smita Church Anesthesia Reason for Visit Right Buttock Hematoma Ht/WT & BMI Height (Feet): 5 Height (Inches): 0.00 Weight (Kilograms): 95.5 Body Mass Index 41.00 Allergies Coded Allergies: Cyiwcoq-Brv-Eai Reductase Inhibitor (Verified Allergy, Unknown, UNKNOWN, ) polyethylene glycol (Verified Allergy, Unknown, UNKNOWN, 05/19/17) Past Anesthesia History Anesthesia History: Denies:: Abnormal Airway, Anesthesia Reactions, Difficult Intubation, Fam Anesthesia Reaction, Malignant Hyperthermia Diabetes History Hx Diabetes?: No (930pm) MRSA MRSA: No Medications Hypertension Medication: Yes (LASIX) Home Meds Incl Beta Noam: No Reported Medications Cholecalciferol (Vitamin D3) (Vitamin D)1,000 Unit Capsule1,000 Unit PO DAILY # 1 BOTTLE Ref 0 05/19/17 Vit B Comp/C/FA/Iron/Vit E (Vitamin B Complex Tablet)1 Each Tablet1 Each PO DAILY 05/19/17 Albuterol Sulfate (Ventolin HFA Inhaler)200 Puff/18 Gm Inhaler1 Puff INH Q4 PRN For Wheezing #1 INHALER Ref 0 05/19/17 Beclomethasone Dipropionate (Qvar)8.7 Gm Aer.w.adap2 Puff INHALATION BID #8.7 GM 05/19/17 Potassium Chloride 20 Meq Tab.er.prt20 Meq PO DAILY 30 Days Ref 0 TAKE WITH FOOD 05/19/17 Multivitamin (Multi Vitamin Daily)1 Each Tablet1 Each PO DAILY 30 Days Ref 0 05/19/17 Methocarbamol 500 Mg Vmewyh590 Mg PO Q6H PRN PRN 05/19/17 Butalbital/ASA/Caff/Cod 55-087-24-30 mg (Fiorinal/Codeine 75-496-25-30 mg)1 Each Capsule1 Capsule PO Q4H PRN Headache Ref 0 05/19/17 Alprazolam (Xanax)1 Mg Tablet1 Mg PO HS PRN For Anxiety Ref 0 05/18/17 Amitriptyline 50 Mg Tab50 Mg PO HS Ref 0 05/18/17 Bupropion ER (Wellbutrin XL)150 Mg Tab.er.24h75 Mg PO BID Ref 0 05/18/17 Citalopram 40 Mg Cjjiea88 Mg PO DAILY 30 Days Ref 0 05/18/17 Thyroid,Pork ([place] Thyroid)60 Mg Cmipau63 Mg PO DAILY 05/18/17 Discontinued Reported Medications Furosemide (Lasix)40 Mg Rcvcvp07 Mg PO DAILY 30 Days Ref 0 05/19/17 Potassium Chloride 40 Meq/15 Ml Mwmrfe06 Meq PO 07/23/15 Alprazolam (Xanax)1 Mg Tablet1 Mg PO HS PRN For Anxiety Ref 0 07/23/15 Amitriptyline 50 Mg Tab50 Mg PO HS Ref 0 07/23/15 Thyroid,Pork ([place] Thyroid)60 Mg Dzkdgy38 Mg PO DAILY 07/23/15 Furosemide (Lasix)40 Mg Hdegor93 Mg PO 30 Days Ref 0 07/23/15 Bupropion ER (Wellbutrin XL)300 Mg Tab.er.87l163 Mg PO DAILY Ref 0 07/23/15 Albuterol-Expunged Drug, Do Not Renew! 8.5 Gm Hfa.aer.ad2 Puffs IH QID four times daily and as needed every four hours 08/14/11 Cholecalciferol (D3)-Expunged Drug, Do Not Re (Vitamin S-0-Vjdarmzb Drug, Do Not Renew!)2,000 Unit Capsule4,000 Unit PO DAILY 08/13/11 Multivitamin (Daily Value)1 Each Tablet1 Each PO DAILY 08/13/11 Estradiol-Expunged Drug, Do Not Renew! (Nqwdcct-Cwg-Jbehksmf Drug, Do Not Renew! )1 Patch.bwk Patch.tdsw1 Patch.bwk TD BIW 1 mg 08/13/11 Amitriptyline-Expunged Drug, Do Not Renew! 25 Mg Uhbajj13 Mg PO HS 08/13/11 Alprazolam-Expunged Drug, Do Not Renew! 1 Mg Tablet1 Mg PO HS Must have XANAX, not generic 08/13/11 Discontinued Scripts Hydromorphone (Dilaudid)2 Mg Tablet2 Mg PO Q4H PRN Pain #14 TABLET Prov:Luis Sanders MD 01/17/17 Rosuvastatin Calcium (Crestor)10 Mg Pmktjw22 Mg PO DAILY stroke, hyperlipidemia #30 TABLET Ref 0 Prov:Jeanne Hall MD 07/23/15 History History of ENT Problems?: Yes HEENT History: Positive for:: Cataracts (S/P EXTRACTIONS) Sinus Problem (S/P RHINOPLASTY) Denies:: Abnormal Airway Difficult Intubation Dysphagia Hearing Problem TMJ Denture Type: None Teeth Condition: Within Normal Limits Other HEENT Pertinent History: S/P TONSILLECTOMY Hx of Heart Problems?: Yes Cardiovascular History: Positive for:: Coronary Artery Disease (HX OF OR) Hypertension (occasional high HYPERLIPIDEMIA) Denies:: AICD Abdominal Aortic Aneurism Cardiac Surgery Chest Pain Congestive Heart Failure Edema Heart Murmur (ECHO 01/2012 EF 60-65%) Irregular Heartbeat Pacemaker Thrombophlebitis Valvular Heart Disease Hx of Respiratory Problem?: Yes Respiratory History: Positive for:: Asthma (seasonal) Dyspnea (OCCAS.) Use of C-PAP Machine (TOD+ W/ CPAP SLEEP STUDY 01/2013) Use of Inhalers / NEBS Denies:: COPD Chest Surgery Emphysema Hemoptysis Pneumonia (once- long ago) Tuberculosis Hx Neurologic Problems?: Yes Neurological History: Positive for:: CVA (Jun 2015- no residual noted) TIA (2015) Denies:: Alzheimer's Disease Dementia Dizziness Headaches Multiple Sclerosis Parkinson's Disease Seizures Hx of GI Problems?: Yes Other GI Pertinent History: S/P APPY Hx of Problems?: Yes Genitourinary History: Positive for:: Urinary Tract Infection (HX OF PYELONEPHRITIS) Denies:: HX of Hemodialysis (HX STAGE 3 CHR. RENAL INSUFFICIENCY) Kidney Stones HX of Peritoneal Dialysis: No Female Hx: Positive for:: Problems with Breasts? (S/P B/L BREAST REDUCTION) Denies:: Currently Endometriosis Pelvic Inflammatory Skin History: Positive for:: History Skin Disorders? (psoriasis) Denies:: Pressure Ulcers Hx Musculoskeletal Problems?: Yes Musculoskeletal History: Positive for:: Degenerative Joint Fibromyalgia Joint Replacement (S/P B/L MANISH'S) Musculoskeletal Trauma (S/P LT ANKLE RPR, BILAT HAND RPR'S) Osteoarthritis Denies:: Back Injury Systemic Lupus Hx of Psycho/Social Problems?: Yes Psycho Social History: Positive for:: Anxiety Hx Depression Denies:: Bipolar Disorder Suicide Attempt Hx Surgeries?: Yes (hysterectomy, bilateral hips, cholecystectomy, L ankle, bilat hands) Hx Any Other Health Problems?: Yes Other History: Positive for:: Hospitalization (pyelonephritis, surgery, diverticulitis) Thyroid Disease Denies:: Cancer Endocrine Disease History Blood Transfusions: Positive for:: Blood Transfusions (long ago ) Denies:: Blood Transfuse Reaction Hx Diabetes: No (930pm) Hx Alcohol Use: NoHx Substance Use: No Smoking Status: Never Smoker Have You Smoked inLast 12 mo: No Stop/Bang Treated for Sleep Apnea?: Yes Do You Have a CPAP Machine?: Yes S-Snoring: Do You Snore Loudly: Yes T-Tired: feel tired, fatigued: Yes O-Obsered: Observed not breath: Yes P-Blood Pressure: treated: Yes B- Body Mass Index > 35 kg/m2: Yes A- Age over 50: Yes N- Neck Large Circumference: Yes G- Gender Male: No TOD Total Score: 7 TOD Risk Assessment: High Risk, =/>3 Yes Risk Assessment Category Category 1A: Patient has history of documented sleep apnea, and HAS NOT received any narcotic, sedative or anesthesia administration during this stay. Category 1B: Patient has history of documented sleep apnea, and HAS received any narcotic , sedative or anesthesia administration during this stay Category 2: Patient has SUSPECTED Obstructive Sleep Apnea, and HAS received any narcotic , sedative or anesthesia administration during this stay. Category 3: Patient has SUSPECTED Obstructive Sleep Apnea and HAS NOT received narcotic, sedative or anesthesia administration during this stay. Category 4: Outpatient in Procedural Areas with known sleep apnea or who screen positive for High Risk via the STOP/BANG questionnaire. Exam Exam Vital Signs Vital Signs Date Time Temp Pulse Resp B/P Pulse Ox O2 Delivery O2 Flow Rate FiO2 05/21/17 10:23 CPAP/BIPAP 05/21/17 10:23 36.0 89 18 148/76 95 Room Air General Appearance: Oriented X3 HEENT/AIRWAY: MP 2 Lungs: Normal Air Movement Heart: Regular Rate/Rhythm Meds/Labs/Diagnostics Admission Meds Current Medications Lactated Ringer's (Lr) 1,000 ml @ 120 mls/hr Q8H20M IV Last administered on t 09:54; Start 05/21/17 at 05:00; Stop 05/21/17 at 13:19 Plan Impression Patient chart reviewed, patient interviewed and anesthestic plan with risks, benefits, and alternatives discussed, and informed consent obtained. ASA Physical Status: ASA3 Severe Disease Anesthetic Plan: GA Bene/Risks/Altern/Consents: Yes HP Complete Prior to Induction: Yes Akhil Barreto MD May 21, 2017 11:59
--- NOTE | 2017-05-21 13:41 | PCM.DISURG ---
Ellie Rm MD 05/21/17 1341: Surgical Discharge Instruction Date of Service May 21, 2017 Dates of Hospitalization Date of Hospital Admission Providers Admitting Physician: Primary Care Physician: Christelle Ng MD Attending Physician: Joelle Pérez MD Discharge Diagnosis Discharge Diagnosis Right buttock hematoma Post Operative diagnosis Right buttock hematoma Diet Discharge Diet: No restrictions Activity Discharge Activity-General: No restrictions, Balance rest and activity, Activity as pain allows, No driving while taking narcotic Dressing and Incisional Care Dressing Care: Change soiled dressing (as needed. May use gauze or ABD pads over site for drainage.) Hygiene: NO bathtub, hot tub or whirlpool (until BLAISE drains removed and sutures removed from incision.) Additional Instructions Discharge Instructions Please call our clinic to have drains removed when output in both drains is 30cc or less for 2 consecutive days. Follow Up Plan Follow Up Plan Follow up for suture removal in 1-2 weeks. Follow-up Provider (F9): Tyson Ramirez PA-C, Allison J MD 05/21/17 1400: Ellie Rm MD May 21, 2017 13:41 Joelle Pérez MD May 21, 2017 14:00
--- NOTE | 2017-05-21 13:51 | PCM.SURGOP ---
Surgical Operative Report Date of Service: May 21, 2017 Pre Operative Diagnosis ENTERED IN ERROR Post Operative Diagnosis None Procedure: None Surgeon and Hair Tinter: None Indication for Procedure None Findings: None Procedure Details None Complications None Surgical Specimen Removed: Not applicable Specimen sent to Pathology: Not applicable Anesthetic Plan: GA, Other Grafts, Implants: None Output, Estimated Blood Loss: 0 Blood Administration during loaiza: No Joelle Pérez MD May 21, 2017 13:50
--- NOTE | 2017-05-21 13:56 | PCM.SURGOP ---
Surgical Operative Report Date of Service: May 21, 2017 Pre Operative Diagnosis Right buttock hematoma Post Operative Diagnosis Right buttock hematoma Procedure: Evacuation right buttock hematoma Surgeon and Six Sigma Project Manager: Surgeon: Joelle Pérez MD Assistants: Ellie Rm MD R3 Indication for Procedure This is a 72-year-old woman who experienced a ground-level fall 5 months ago. She developed a hematoma at that site. She underwent aspiration several times, but it consistently recurred. For that reason she desired evacuation. Findings: Large hematoma cavity with approximately 360 mL of fluid within it as well as old clotted blood and what appeared to be necrotic muscle. There is a well- developed capsule around the hematoma. Procedure Details The patient was brought to the operating room and placed in supine position. General anesthesia was induced. She was repositioned into left lateral decubitus position. The operative field was prepped and draped in sterile fashion. Antibiotics were infused. A preprocedural timeout was performed to confirm the correct patient, procedure, site, and side. A 2 cm incision was made over the location of greatest fluctuance of the hematoma on the buttock. There was a capsule around the hematoma and it was incised. Proximally 360 mm of brown, serous appearing fluid was suctioned out. There was a moderate amount of old blood clot within it as well, which is also evacuated. Copious irrigation was performed. A curette was used to clean out the inside of the capsule, debride any additional retained clot and a small amount of necrotic muscle tissue, and to irritate the capsular lining in order to facilitate reapproximation of tissues after the operation. Two 19 Ma[place] Ted drains were placed within the cavity with exit sites on the lateral aspect of the buttock. There were sutured into place with 2-0 nylon stitches. The primary incision was closed with interrupted 3-0 nylon. Sterile dressings were placed. The patient was awakened, and tolerated the procedure well. She was taken to the postoperative care unit in good condition. Complications There were no periprocedural complications identified. Surgical Specimen Removed: Yes Specimen sent to Pathology: No Surgical Specimen description: Old hematoma, brown serous fluid Anesthetic Plan: GA Grafts, Implants: None Output, Estimated Blood Loss: 2 (ml) Blood Administration during loaiza: No Joelle Pérez MD May 21, 2017 13:56
--- NOTE | 2017-05-21 15:03 | PCM.ANEP1 ---
Post Anesthesia PACU Phase 1 Assessment Vital Signs Vital Signs Date Time Temp Pulse Resp B/P Pulse Ox O2 Delivery O2 Flow Rate FiO2 05/21/17 14:20 74 22 170/80 94 Room Air 05/21/17 14:15 72 22 174/80 93 Room Air 05/21/17 14:10 36.3 72 21 176/82 98 Nasal Cannula 2 05/21/17 14:00 36.0 72 18 157/76 97 Nasal Cannula 2 05/21/17 13:50 76 21 178/86 97 Nasal Cannula 2 05/21/17 13:45 80 22 176/87 94 Nasal Cannula 2 05/21/17 13:40 84 23 170/84 91 Nasal Cannula 2 05/21/17 13:35 36.4 85 17 158/80 92 Room Air 05/21/17 10:23 CPAP/BIPAP 05/21/17 10:23 36.0 89 18 148/76 95 Room Air Anesthetic Administered: GA Level of Alertness: Awake, talking Pain: No Nausea or Vomiting: No CV Function & Hydration Stable: Yes Airway Device: Lungs: Normal Air Movement PACU Phase 2 Assessment Patient Instructions Provided: N/A Akhil Barreto MD May 21, 2017 15:03
== END | disposition home or self-care (01) ==
LOC: SAS 09:50
PROVIDERS: ATTEND Surgery
DX: S70.01XA Contusion of right hip, initial encounter (principal); I12.9 Hypertensive chronic kidney disease with stage 1 through stage 4 chronic kidney disease, or unspecified chronic kidney disease; I25.10 Atherosclerotic heart disease of native coronary artery without angina pectoris; E78.5 Hyperlipidemia, unspecified; F41.8 Other specified anxiety disorders; N18.3 Chronic kidney disease, stage 3 (moderate); J45.909 Unspecified asthma, uncomplicated; M19.90 Unspecified osteoarthritis, unspecified site; G47.33 Obstructive sleep apnea (adult) (pediatric); M79.7 Fibromyalgia; M48.02 Spinal stenosis, cervical region; W18.30XA Fall on same level, unspecified, initial encounter; Y93.9 Activity, unspecified; Y92.9 Unspecified place or not applicable; Y99.8 Other external cause status; Z86.73 Personal history of transient ischemic attack (TIA), and cerebral infarction without residual deficits; Z87.440 Personal history of urinary (tract) infections; Z79.82 Long term (current) use of aspirin; E66.01 Morbid (severe) obesity due to excess calories; Z68.41 Body mass index [BMI] 40.0-44.9, adult
CPT/HCPCS: 26990; J0690; J1100; J2405; J2704; J2765; J7120

== ENCOUNTER 2017-05-24 08:14 | Day surgery (SDC) | payer MEDICARE ==
[2017-05-24] VITALS (17 sets, daily range): BP systolic 143–188; BP diastolic 68–114; PULSE 75–106; RESP 13–20; O2SAT 91–97
[~2017-05-24] VITALS: Ht 152.4 cm; Wt 96.0 kg
[~2017-05-24 08:14] MED LIST changes: -Bupivacaine-MPF 0.5% 30 mL Inj INFILTRATE ONE; -CeFAZolin Inj 2 GM in IV Premix 1 EACH IV ONE; -Dexamethasone 4 mg/mL Inj IVPUSH PRN; -Dexamethasone 4 mg/mL Inj ONE; -EPHEDrine Sulfate 50 mg/mL Inj IVPUSH PRN; -HYDROmorphone 1 mg/mL Inj IVPUSH PRN; -Labetalol 5 mg/mL 20 mL Inj IV PRN; +Lactated Ringer's 1,000 ML IV ONE; -Lactated Ringer's 1,000 ML IV SCH; -Lactated Ringer's 500 ML IV PRN; -MetoCLOpramide 5 mg/mL 2 mL Inj IVPUSH PRN; -MetoCLOpramide 5 mg/mL 2 mL Inj ONE; -Ondansetron 2 mg/mL 2 mL Inj IVPUSH PRN; -Ondansetron 2 mg/mL 2 mL Inj ONE; -Phenylephrine 10,000 mCg/mL Inj IVPUSH PRN; -Propofol 10,000 mCg/mL 20 mL Inj ONE; -fentaNYL-PF 50 mCg/mL 2 mL Inj IVPUSH PRN
[2017-05-24] MEDS ORDERED: EPHEDrine/NS 5 mg/mL 5 mL Syringe ONE (08:15)
[2017-05-24] MEDS ORDERED: Dexamethasone 4 mg/mL Inj ONE (08:15)
[2017-05-24] MEDS ORDERED: Propofol 10,000 mCg/mL 20 mL Inj ONE (08:15)
[2017-05-24] MEDS ORDERED: fentaNYL-PF 50 mCg/mL 2 mL Inj ONE (08:15)
[2017-05-24] MEDS ORDERED: Ondansetron 2 mg/mL 2 mL Inj ONE (08:15)
[2017-05-24] MEDS ORDERED: CeFAZolin 2 Gm/50 mL D5W Duplex Bag IV ONE (08:25)
--- NOTE | 2017-05-24 08:56 | PCM.HPANE ---
Patient Data Date of Service: May 24, 2017 Surgeon Admitting Provider: Attending Provider:Jalen Tucker MD Primary Care Physician:Christelle Ng MD Other Provider:Smita Church Anesthesia Reason for Visit Nasal Fracture NASAL FRACTURE Ht/WT & BMI Height (Feet): 5 Height (Inches): 0.00 Weight (Kilograms): 96 Body Mass Index 41.00 Allergies Coded Allergies: Jvoszbu-Gaz-Mwx Reductase Inhibitor (Verified Allergy, Unknown, UNKNOWN, ) polyethylene glycol (Verified Allergy, Unknown, UNKNOWN, 05/19/17) Past Anesthesia History Anesthesia History: Denies:: Abnormal Airway, Anesthesia Reactions, Difficult Intubation, Fam Anesthesia Reaction, Malignant Hyperthermia Diabetes History Hx Diabetes?: No MRSA MRSA: No Medications Hypertension Medication: Yes Home Meds Incl Beta Noam: No Active Scripts Sennosides/Docusate Sodium (Senna-Docusate Sodium Tablet)1 Each Tablet1 Each PO BID PRN For Constipation #20 TABLET Prov:Ellie Rm MD 05/21/17 oxyCODONE 5 Mg Tablet5 Mg PO Q4H PRN For Pain #10 TABLET Prov:Ellie Rm MD 05/21/17 Ibuprofen 600 Mg Yfqdqb024 Mg PO QID PRN For Pain #30 TABLET Prov:Ellie Rm MD 05/21/17 Acetaminophen 500 Mg Bstbni709 Mg PO Q6H PRN For Pain #60 TABLET Prov:Ellie Rm MD 05/21/17 Reported Medications Cholecalciferol (Vitamin D3) (Vitamin D)1,000 Unit Capsule1,000 Unit PO DAILY # 1 BOTTLE Ref 0 05/19/17 Vit B Comp/C/FA/Iron/Vit E (Vitamin B Complex Tablet)1 Each Tablet1 Each PO DAILY 05/19/17 Albuterol Sulfate (Ventolin HFA Inhaler)200 Puff/18 Gm Inhaler1 Puff INH Q4 PRN For Wheezing #1 INHALER Ref 0 05/19/17 Beclomethasone Dipropionate (Qvar)8.7 Gm Aer.w.adap2 Puff INHALATION BID #8.7 GM 05/19/17 Potassium Chloride 20 Meq Tab.er.prt20 Meq PO DAILY 30 Days Ref 0 TAKE WITH FOOD 05/19/17 Multivitamin (Multi Vitamin Daily)1 Each Tablet1 Each PO DAILY 30 Days Ref 0 05/19/17 Methocarbamol 500 Mg Lqlwqs330 Mg PO Q6H PRN PRN 05/19/17 Butalbital/ASA/Caff/Cod 45-315-47-30 mg (Fiorinal/Codeine 09-551-42-30 mg)1 Each Capsule1 Capsule PO Q4H PRN Headache Ref 0 05/19/17 Alprazolam (Xanax)1 Mg Tablet1 Mg PO HS PRN For Anxiety Ref 0 05/18/17 Amitriptyline 50 Mg Tab50 Mg PO HS Ref 0 05/18/17 Bupropion ER (Wellbutrin XL)150 Mg Tab.er.24h75 Mg PO BID Ref 0 05/18/17 Citalopram 40 Mg Wnmyyx76 Mg PO DAILY 30 Days Ref 0 05/18/17 Thyroid,Pork ([place] Thyroid)60 Mg Jtumrk51 Mg PO DAILY 05/18/17 Discontinued Reported Medications Furosemide (Lasix)40 Mg Dajxci49 Mg PO DAILY 30 Days Ref 0 05/19/17 Potassium Chloride 40 Meq/15 Ml Kyrjlt79 Meq PO 07/23/15 Alprazolam (Xanax)1 Mg Tablet1 Mg PO HS PRN For Anxiety Ref 0 07/23/15 Amitriptyline 50 Mg Tab50 Mg PO HS Ref 0 07/23/15 Thyroid,Pork ([place] Thyroid)60 Mg Ylsatf46 Mg PO DAILY 07/23/15 Furosemide (Lasix)40 Mg Rrixby65 Mg PO 30 Days Ref 0 07/23/15 Bupropion ER (Wellbutrin XL)300 Mg Tab.er.74m454 Mg PO DAILY Ref 0 07/23/15 Albuterol-Expunged Drug, Do Not Renew! 8.5 Gm Hfa.aer.ad2 Puffs IH QID four times daily and as needed every four hours 08/14/11 Cholecalciferol (D3)-Expunged Drug, Do Not Re (Vitamin S-0-Rkymawcd Drug, Do Not Renew!)2,000 Unit Capsule4,000 Unit PO DAILY 08/13/11 Multivitamin (Daily Value)1 Each Tablet1 Each PO DAILY 08/13/11 Estradiol-Expunged Drug, Do Not Renew! (Qzucjgh-Jzj-Kmhluipr Drug, Do Not Renew! )1 Patch.bwk Patch.tdsw1 Patch.bwk TD BIW 1 mg 08/13/11 Amitriptyline-Expunged Drug, Do Not Renew! 25 Mg Vrdiwp29 Mg PO HS 08/13/11 Alprazolam-Expunged Drug, Do Not Renew! 1 Mg Tablet1 Mg PO HS Must have XANAX, not generic 08/13/11 Discontinued Scripts Hydromorphone (Dilaudid)2 Mg Tablet2 Mg PO Q4H PRN Pain #14 TABLET Prov:Luis Sanders MD 01/17/17 Rosuvastatin Calcium (Crestor)10 Mg Dlfxnp54 Mg PO DAILY stroke, hyperlipidemia #30 TABLET Ref 0 Prov:Jeanne Hall MD 07/23/15 History History of ENT Problems?: Yes HEENT History: Positive for:: Cataracts (S/P EXTRACTIONS) Sinus Problem (S/P RHINOPLASTY) Denies:: Abnormal Airway Difficult Intubation Dysphagia Glaucoma Hearing Problem TMJ Denture Type: None Teeth Condition: Missing Teeth Hx of Heart Problems?: Yes Cardiovascular History: Positive for:: Hypertension (occasional high HYPERLIPIDEMIA) Denies:: AICD Abdominal Aortic Aneurism Cardiac Surgery Chest Pain Congestive Heart Failure Edema Heart Murmur (ECHO 01/2012 EF 60-65%) Irregular Heartbeat Pacemaker Thrombophlebitis Valvular Heart Disease Hx of Respiratory Problem?: Yes Respiratory History: Positive for:: Asthma (seasonal) Dyspnea (OCCAS.) Use of C-PAP Machine (TOD+ W/ CPAP SLEEP STUDY 01/2013) Denies:: COPD Chest Surgery Emphysema Hemoptysis Pneumonia (once- long ago) Tuberculosis Hx Neurologic Problems?: Yes Neurological History: Positive for:: CVA (Jun 2015- no residual noted) Denies:: Alzheimer's Disease Dementia Dizziness Headaches Multiple Sclerosis Parkinson's Disease Seizures TIA Hx of GI Problems?: Yes Hx of Problems?: Yes Genitourinary History: Positive for:: Urinary Tract Infection (HX OF PYELONEPHRITIS) Denies:: HX of Hemodialysis (HX STAGE 3 CHR. RENAL INSUFFICIENCY) Kidney Stones HX of Peritoneal Dialysis: No Other History/Comment CKD Female Hx: Positive for:: Problems with Breasts? (S/P B/L BREAST REDUCTION) Denies:: Currently Endometriosis Pelvic Inflammatory Skin History: Positive for:: History Skin Disorders? (psoriasis) Denies:: Pressure Ulcers Hx Musculoskeletal Problems?: Yes Musculoskeletal History: Positive for:: Degenerative Joint Fibromyalgia Joint Replacement (S/P B/L MANISH'S) Musculoskeletal Trauma (S/P LT ANKLE RPR, BILAT HAND RPR'S) Osteoarthritis Denies:: Back Injury Myasthenia Gravis Systemic Lupus Hx of Psycho/Social Problems?: Yes Psycho Social History: Positive for:: Anxiety Hx Depression Denies:: Bipolar Disorder Suicide Attempt Hx Surgeries?: Yes (hysterectomy, bilateral hips, cholecystectomy, L ankle, bilat hands) Hx Any Other Health Problems?: Yes Other History: Positive for:: Hospitalization (pyelonephritis, surgery, diverticulitis) Thyroid Disease Denies:: Cancer Endocrine Disease History Blood Transfusions: Positive for:: Accept Blood Products? Blood Transfusions (long ago ) Denies:: Blood Transfuse Reaction Hx Diabetes: No Hx Alcohol Use: NoHx Substance Use: No Smoking Status: Never Smoker Have You Smoked inLast 12 mo: No Stop/Bang Treated for Sleep Apnea?: Yes Do You Have a CPAP Machine?: Yes P-Blood Pressure: treated: No B- Body Mass Index > 35 kg/m2: Yes A- Age over 50: Yes N- Neck Large Circumference: No G- Gender Male: No TOD Category 1: Yes TOD Category 4 OutPt Procedure: Yes Risk Assessment Category Category 1A: Patient has history of documented sleep apnea, and HAS NOT received any narcotic, sedative or anesthesia administration during this stay. Category 1B: Patient has history of documented sleep apnea, and HAS received any narcotic , sedative or anesthesia administration during this stay Category 2: Patient has SUSPECTED Obstructive Sleep Apnea, and HAS received any narcotic , sedative or anesthesia administration during this stay. Category 3: Patient has SUSPECTED Obstructive Sleep Apnea and HAS NOT received narcotic, sedative or anesthesia administration during this stay. Category 4: Outpatient in Procedural Areas with known sleep apnea or who screen positive for High Risk via the STOP/BANG questionnaire. Exam Exam Vital Signs Vital Signs Date Time Temp Pulse Resp B/P Pulse Ox O2 Delivery O2 Flow Rate FiO2 05/24/17 08:27 36.3 91 16 162/93 95 Room Air General Appearance: Alert, Oriented X3, Cooperative, No Acute Distress HEENT/AIRWAY: MP 3 Lungs: Clear to Auscultation, Normal Air Movement Heart: Exam Unremarkable, Regular Rate/Rhythm, No Murmurs/Rubs/Gallops Plan Impression Patient chart reviewed, patient interviewed and anesthestic plan with risks, benefits, and alternatives discussed, and informed consent obtained. NPO per Anesth. Guidelines: Yes ASA Physical Status: ASA3 Severe Disease Anesthetic Plan: GA Bene/Risks/Altern/Consents: Yes HP Complete Prior to Induction: Yes Victor M Calderón MD May 24, 2017 08:55
[2017-05-24] MEDS ORDERED: Lactated Ringer's 1,000 ML IV ONE (09:26)
[2017-05-24] MEDS ORDERED: Lidocaine 2%-Epi 1:100,000 20 mL Inj INFILTRATE ONE (09:26)
[2017-05-24] MEDS ORDERED: Lactated Ringer's 500 ML IV PRN (09:31)
[2017-05-24] MEDS ORDERED: Lactated Ringer's 1,000 ML IV SCH (09:31)
[2017-05-24] MEDS ORDERED: EPHEDrine Sulfate 50 mg/mL Inj IVPUSH PRN (09:35)
[2017-05-24] MEDS ORDERED: MetoCLOpramide 5 mg/mL 2 mL Inj IVPUSH PRN ×2 (09:35→11:05)
[2017-05-24] MEDS ORDERED: HYDROmorphone 1 mg/mL Inj IVPUSH PRN (09:35)
[2017-05-24] MEDS ORDERED: Ondansetron 2 mg/mL 2 mL Inj IVPUSH PRN (09:35)
[2017-05-24] MEDS ORDERED: Dexamethasone 4 mg/mL Inj IVPUSH PRN (09:35)
[2017-05-24] MEDS ORDERED: Phenylephrine 10,000 mCg/mL Inj IVPUSH PRN (09:35)
--- NOTE | 2017-05-24 10:05 | PCM.ANEP1 ---
Post Anesthesia PACU Phase 1 Assessment Date of Service: May 24, 2017 Vital Signs 36.1 149/80 89 14 96% FM Anesthetic Administered: GA Level of Alertness: Sleeping, hard to arouse STEWARD's with Equal Strength: Yes Pain: No Nausea or Vomiting: No CV Function & Hydration Stable: Yes Airway Device: Oxygen Delivery: Simple Mask Lungs: Clear to Auscultation, Normal Air Movement PACU Phase 2 Assessment Complications: No Follow up Care: N/A Patient Instructions Provided: N/A Victor M Calderón MD May 24, 2017 10:05
[2017-05-24] MEDS: fentaNYL-PF 50 mCg/mL 2 mL Inj IVPUSH PRN ×3 (10:32→10:58)
--- NOTE | 2017-05-24 10:41 | OP ---
[address] [address] OPERATIVE REPORT PATIENT: BRADLEY CACERES : 1945 MR#: [id number] ADMIT: 05/24/2017 JOB ID: [id number] DATE OF SURGERY: 05/24/2017 SURGEON: Jalen Tucker MD PREOPERATIVE DIAGNOSIS(ES): Traumatic septal fracture dislocation and nasal fracture. POSTOPERATIVE DIAGNOSIS(ES): Traumatic septal fracture dislocation and nasal fracture. PROCEDURE: Open reduction of septal fracture and nasal fracture. HISTORY AND INDICATIONS: A 72-year-old woman previously fell sustaining a severe injury to her nose, total nasal obstruction. PROCEDURE AND OPERATIVE FINDINGS: Taken to the operative room, placed supine position on the operating table. LMA anesthesia induced. Face prepped and draped in sterile fashion. The right nasal bone is noted to be protruding. It is digitally reduced. Intranasally the quadrangular cartilage was multiply folded, comminuted, buckling to the right, obstructing the right nasal airway completely then back to the left obstructing on that side. The mucosa is intact. The septum was injected with 2% lidocaine 100,000 epinephrine. With a 15 blade a left anterior septal incision was made. With a [place] elevator the mucoperichondrium was elevated from the left side. Approximately a centimeter into the septal envelope there are multiple fragments of cartilage that are no longer attached to mucosa. These are removed. The posterior portion of the quadrangular cartilage is intact. A 4 mm strip is resected. A pocket was created in the columella and this strut graft is placed to re-support the nasal tip. The remaining caudal portion of the septum is freed up from the maxillary crest, repositioned in the midline and secured to the septal strut. The anterior incision was then closed with interrupted 4-0 chromic. The septum is mattressed with multiple interrupted 4-0 plain sutures securing the cartilage grafts. Silastic splints were fashioned, placed on either side of the septum and secured with a through and through 4-0 nylon. Merocel packs were placed bilaterally. Additionally there were some allergic polyps present on the middle turbinates. These were treated with suction cauterization. The patient is awakened in the operative and moved to recovery room in good condition.
[2017-05-24] MEDS: HYDROcodone-APAP 5-325 mg Tablet PO PRN ×2 (12:59→21:52)
[2017-05-24] MEDS ORDERED: Influenza (Adult) Vaccine 0.5 mL Syringe IM ONE (13:25)
[2017-05-24] MEDS ORDERED: buPROPion XL 150 mg ER24 Tablet PO SCH (21:00)
[2017-05-24] MEDS ORDERED: Levalbuterol 1.25 mg/0.5mL Inhalation Solution NEB PRN (21:10)
[2017-05-24] MEDS ORDERED: Labetalol 5 mg/mL 20 mL Inj IVPUSH PRN (21:10)
[2017-05-24 21:16] LABS: BASOPHILS % (AUTO) 0.1 % (0-3); EOSINOPHILS % (AUTO) 0 % (0-5); MONOCYTES % (AUTO) 3.8 % (4-12); Mean Corpuscular Hemoglobin 30.7 pg (27.0-35.0); NEUTROPHILS % (AUTO) 91.9 % (40-74); Platelet Count 328 bil/L (150-400)
--- NOTE | 2017-05-24 21:38 | PCM.CHPMED ---
Subjective Date of Service: May 24, 2017 Provider requesting consult: Jalen Tucker MD Primary Physician: Admitting Physician: Primary Care Physician: Christelle Ng MD Attending Physician: Jalen Tucker MD Chief Complaint: Chief Complaint: Hypertension. . History of Present Illness: Татьяна Crooks is a 72-year-old with a past medical history significant for asthma, depression, chronic kidney disease stage III, and hypothyroidism who we were consulted on regarding postoperative hypertension. She recently endured a ground level mechanical fall 3 weeks ago and underwent an open reduction of her septal and nasal fractures. The patient reports that the surgery went well and that she is in no pain. She does not have a history of hypertension and is not on any medication to treat hypertension. She reports that prior to the rhinoplasty she was given Afrin that she was using every 20 minutes. There was no preoperative lab work performed as patient just had lab work performed as an outpatient. She denies fatigue, cough, sore throat, shortness of breath, chest pain, abdominal pain, nausea, vomiting, fever, chills, dysuria, diarrhea or constipation. She endorses headache. She has supplemental oxygen in place. Of note, she recently had a large right buttock hematoma evacuation performed by Dr. Joelle Pérez of general surgery and has a BLAISE drain in place. Vital signs temperature 36.4. Pulse 89. Respiratory rate 15. Blood pressure 176/104. Pulse ox 97% on 3 L via oxygen mask. PCP is Dr. Christelle Ng at [facility]. ENT Dr. Tucker. . Review of Systems: A comprehensive review of systems was conducted with the patient and found to be negative except as above in the History of Present Illness. . PMH Past Medical History 1. Hypothyroidism. 2. Migraine headaches. 3. Depression. 4. Insomnia. 5. Asthma. 6. Fibromyalgia. 7. Vitamin D deficiency. 8. Chronic kidney disease stage III. 9. Probable diabetes mellitus type II as patient reports her hemoglobin A1c was 6.5%. Surgical History 1. Rhinoplasty. 2. Right buttock hematoma evacuation. 3. Bilateral hip replacement. 4. Transvaginal hysterectomy. 5. Hand surgery 6. 6. Left ankle ORIF. 7. Breast reduction. 8. Uvuloplasty. . Home Medications Acetaminophen 500 mg every 6 hours as needed for pain. Albuterol 1 puff every 4 hours as needed for shortness of breath. Alprazolam 1 mg daily at bedtime. Amitriptyline 50 mg daily at bedtime. [place] thyroid 60 mg daily. Bupropion 75 mg twice a day. Fioricet one capsule every 4 hours as needed for migraine headache. Citalopram 40 mg daily. Methocarbamol 500 mg every 6 hours as needed for muscle spasm. Multivitamin daily. Oxycodone 5 mg every 4 hours as needed forpain. Potassium chloride 20 mEq daily as needed when taking Lasix. Qvar 2 puffs inhaled twice a day. Senna 8.6 mg as needed for constipation. Vitamin B complex 1 tablet daily. Vitamin D3 1000 units daily. . Allergies: Coded Allergies: Tgajyvl-Xlt-Ybh Reductase Inhibitor (Verified Allergy, Unknown, UNKNOWN, ) polyethylene glycol (Verified Allergy, Unknown, UNKNOWN, 05/19/17) Family History Family History Mother starved herself to . Father who had colon cancer and of [place] at 90 years old. Sister who of breast cancer 58. Brother who of [place] at 82. . Social History Hx Alcohol Use: NoHx Substance Use: NoHx Tobacco Use: No Smoking Status: Never Smoker Additional Information The patient is . She has 2 sons who have asthma but are otherwise healthy. 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 . Exam Vital Signs Vital Sign - Last Date Time Temp Pulse Resp B/P Pulse Ox O2 Delivery O2 Flow Rate FiO2 05/24/17 20:44 Supplement Oxygen 05/24/17 17:15 91 182/107 91 3.00 05/24/17 16:00 36.4 05/24/17 11:14 13 General: Alert, Oriented X3, No Acute Distress Head: Normal Eyes: PERRLA, EOMI, Other (nasal bandage in place, C/D/I) Mouth: Mouth Normal, Mucous Membr Moist/[place] Chest & Lungs: Other (clear to auscultation bilaterally with rare wheeze) Cardiovascular: Regular Rate/Rhythm, Normal S1, Normal S2, No Murmurs/Rubs/ Gallops Abdomen: Non-tender, Non-distended, No hepatosplenomegaly, Normoactive bowel tones, Soft, Obese Genitourinary: Fontaine Absent, Other (BLAISE drain in place with minimal serosangious drainage) Extremities: No cyanosis/clubbing/edma bilat, No heel ulcers present Neurological: Grossly Neurologically Intact, Cranial Nerves 2-12 Intact, Normal Speech, Other (Known gait impairment) Assessment & Plan Assessment Татьяна Crooks is a 72-year-old with a past medical history significant for asthma, depression, chronic kidney disease stage III, and hypothyroidism who we were consulted on regarding postoperative hypertension. 1. Postoperative hypertension, present on admission. Active. - Ordered labetalol IV 20 mg as needed for SBP> 160 sustained over 30 minutes. May repeat dose after 30 minutes. If additional doses required instructed nurse to call M.D. - Ordered lab work including: CBC, CMP, magnesium, and TSH to rule out electrolyte abnormalities, significant anemia, and unmanaged thyroid disease, pending. - Continue pain management as directed by ENT, Dr. Tucker Chronic problems: 2. Hypothyroidism, present on admission. Stable. - Continue home [place] thyroid 60 mg daily. - Ordered TSH, pending. 3. Migraine headaches, present on admission. Stable. - Continue home Fioricet one capsule every 4 hours as needed for migraine headache. 4. Depression, present on admission. Stable. - Continue home bupropion 75 mg twice a day and citalopram 40 mg daily. 5. Insomnia, present on admission. Stable. - Continue home alprazolam 1 mg daily at bedtime. 6. Asthma, present on admission. Stable. - Continue home inhaler Qvar 2 puffs inhaled twice a day. Replaced albuterol with Xopenex as patient reports this makes her jittery and she is trying to go to bed. 7. Fibromyalgia, present on admission. Stable. - Continue home amitriptyline 50 mg daily at bedtime. 8. Vitamin D deficiency, present on admission. Stable. - Continue home vitamin D3 1000 units daily. 9. Chronic kidney disease stage III, present on admission. Stable. - Patient is not seen by nephrology but should likely establish care as an outpatient to slow progression of disease process. - Ordered creatinine, pending. - Avoid nephrotoxic agents. - Monitor creatinine daily if she were to have a prolonged course in the hospital. 10. Probable diabetes mellitus type II as patient reports her hemoglobin A1c was 6.5%. - Ordered hemoglobin A1c, pending. - Blood glucose continuously elevated may consider low-dose correctional scale insulin if she were to have a prolonged course in the hospital. PRN antiemetics: Zofran and Maalox. PRN bowel regimen: Senna and MiraLAX. PRN analgesics: Tylenol. . Problems: VTE Mechanical Devices: Intermittant Pneumatic CD Resuscitation Status: DNR/DNI:Do Not Resuscitate/Intubate Attending Statement The patient was seen and examined together with house staff on 05/24/2017 and I agree with the history, exam and plan as outlined in the note above. copies to: Christelle Ng MD, [place] M DO May 24, 2017 21:11 Camryn Mai DO May 24, 2017 22:17
[2017-05-24 21:48] LABS: Magnesium 1.9 mg/dL (1.6-2.6)
[2017-05-24] MEDS ORDERED: Dextrose 10% 250 ML IV PRN (22:00)
[2017-05-24] MEDS: Insulin LISPRO 300 Unit/3 mL Inj SUBQ SCH (22:00)
[2017-05-24] MEDS ORDERED: Glucose 40% Oral Gel 15 Gm Tube PO PRN (22:00)
[2017-05-25 05:32] VITALS: BP 145/85; PULSE 70; RESP 16; O2SAT 90
[2017-05-25] MEDS: Insulin LISPRO 300 Unit/3 mL Inj SUBQ SCH ×2 (08:00→11:48)
[2017-05-25 08:10] VITALS: BP 168/82; PULSE 77; RESP 18; O2SAT 97
[2017-05-25] MEDS ORDERED: Influenza (Adult) Vaccine 0.5 mL Syringe IM ONE (08:45)
[2017-05-25 09:58] VITALS: PULSE 66
[2017-05-25 11:49] VITALS: BP 132/78; PULSE 82; RESP 20; O2SAT 92
--- NOTE | 2017-05-25 12:34 | PCM.PNMED ---
Subjective Date of Service May 25, 2017 Subjective Patient seen and examined. No complaints. Vitals noted. Exam Vital Signs Vital Sign - Last Date Time Temp Pulse Resp B/P Pulse Ox O2 Delivery O2 Flow Rate FiO2 05/25/17 11:49 36.8 82 20 132/78 92 Room Air 05/24/17 21:22 3.00 Intake and Output 05/24/17 05/24/17 05/25/17 Cumulative From/Thru 15:00 23:00 07:00 05/18/17 09:22 - 05/25/17 06:02 Intake Total 1300 ml 600 ml 1900 ml 3800 ml Output Total 520 ml 2235 ml 2755 ml Balance 1300 ml 80 ml -335 ml 1045 ml Intake Oral 600 ml 1900 ml 2500 ml IV Total 1300 ml 1300 ml Output Urine Total 500 ml 2200 ml 2700 ml Drainage Total 20 ml 35 ml 55 ml # Bowel Movements 0 0 Exam General: Alert, Oriented X3, No Acute Distress Head: Normal Eyes: PERRLA, EOMI, Other (nasal bandage in place, C/D/I) Mouth: Mouth Normal, Mucous Membr Moist/[place] Chest & Lungs: Other (clear to auscultation bilaterally with rare wheeze) Cardiovascular: Regular Rate/Rhythm, Normal S1, Normal S2, No Murmurs/Rubs/ Gallops Abdomen: Non-tender, Non-distended, No hepatosplenomegaly, Normoactive bowel tones, Soft, Obese Genitourinary: Fontaine Absent, Other (BLAISE drain in place with minimal serosangious drainage) Extremities: No cyanosis/clubbing/edma bilat, No heel ulcers present Neurological: Grossly Neurologically Intact, Cranial Nerves 2-12 Intact, Normal Speech, Other (Known gait impairment) Lab and Diagnostics Result Diagram: 05/24/17210205/24/172102 Assessment & Plan Татьяна Crooks is a 72-year-old with a past medical history significant for asthma, depression, chronic kidney disease stage III, and hypothyroidism who we were consulted on regarding postoperative hypertension. # Postoperative hypertension, present on admission. Active. - Given only 10mg labetalol last night IV - as per her, she has taken lisinorpil in the past and is aware that she has HTN - patient said she gets cough with lisinopril, will start amlodipine for now as patient's Cr is elevated slightly, unclear if this is baseline, she does see a press operator meat outpatient, follow up - outpatient follow up for HTN control # DM - Hba1c 6.7% - patient said she wasnt aware that she has diabetes - will need follow up outpatient to start with diet and exercise, and possibly oral hypoglycemics Chronic problems: # Hypothyroidism, present on admission. Stable. - Continue home [place] thyroid 60 mg daily. - TSH WNL # Migraine headaches, present on admission. Stable. - Continue home Fioricet one capsule every 4 hours as needed for migraine headache. # Depression, present on admission. Stable. - Continue home bupropion 75 mg twice a day and citalopram 40 mg daily. # Insomnia, present on admission. Stable. - Continue home alprazolam 1 mg daily at bedtime. # Asthma, present on admission. Stable. - Continue home inhaler Qvar 2 puffs inhaled twice a day. Replaced albuterol with Xopenex as patient reports this makes her jittery and she is trying to go to bed. # Fibromyalgia, present on admission. Stable. - Continue home amitriptyline 50 mg daily at bedtime. # Vitamin D deficiency, present on admission. Stable. - Continue home vitamin D3 1000 units daily. # Chronic kidney disease stage III, present on admission. Stable. - Patient is not seen by nephrology but should likely establish care as an outpatient to slow progression of disease process. - Avoid nephrotoxic agents. Strict DM and blood pressure control, outpatient followup From medicine standpoint, patient can be discharged on amlodipine 10mg added to her current scripts, and she needs an outpatient follow with her pcp to address the problems above. We will go ahead and sign off. Please call if any questions. VTE Mechanical Devices: Intermittant Pneumatic CD Resuscitation Status: DNR/DNI:Do Not Resuscitate/Intubate Time spent 35 mins Mayo Motley MD May 25, 2017 12:34
== END 2017-05-25 14:20 | disposition home or self-care (01) ==
LOC: SAS 08:14 → MOC 11:40 → SAS 05-25 14:20
PROVIDERS: ATTEND Otolaryngology Facial Plastic Surgery
DX: S02.2XXB Fracture of nasal bones, initial encounter for open fracture (principal); J34.89 Other specified disorders of nose and nasal sinuses; J34.2 Deviated nasal septum; J45.909 Unspecified asthma, uncomplicated; I10 Essential (primary) hypertension; G47.33 Obstructive sleep apnea (adult) (pediatric); M79.7 Fibromyalgia; F41.8 Other specified anxiety disorders; W18.30XA Fall on same level, unspecified, initial encounter; Y93.9 Activity, unspecified; Y92.9 Unspecified place or not applicable; Y99.8 Other external cause status; Z96.643 Presence of artificial hip joint, bilateral; Z86.73 Personal history of transient ischemic attack (TIA), and cerebral infarction without residual deficits; Z87.440 Personal history of urinary (tract) infections; Z23 Encounter for immunization
CPT/HCPCS: 21335; 36415; 80048; 80053; 83036; 83735; 84443; 85025; 90471; 90674; 94799; J0690; J1100; J1815; J2250; J2405; J2704; J3010; J7120